=== PATIENT | male | born 1990 | race Caucasian/White ===

== ENCOUNTER 2021-11-28 19:04 | Emergency (ER) | payer MEDICAID ==
[~2021-11-28] VITALS: Ht 165.1 cm; Wt 118.0 kg
[2021-11-28] MEDS ORDERED: SODIUM CHLORIDE 0.9% 1000ML BAG (SEPSIS BOLUS) IV ONE (21:00)
[2021-11-28] MEDS ORDERED: ACETAMINOPHEN 325MG TABLET PO ONE (21:00)
[2021-11-28 22:27] LABS: CHLORIDE 104 mEq/L (98-107)
[2021-11-28 22:29] LABS: BASOPHILS % 0.4 % (0.0-2.0); EOSINOPHILS % 1.3 % (0.0-5.0); HEMATOCRIT. 24.1 % (42.0-52.0); HEMOGLOBIN. 8.1 g/dL (14.0-18.0); MEAN CORPUSCULAR HEMOGLOBIN 29.1 pg (28.0-32.0); MEAN CORPUSCULAR VOLUME 86.1 fL (80.0-94.0); MEAN PLATELET VOLUME 6.7 fl (7.4-10.4); NEUTROPHILS % 68.3 % (40.0-76.0); PLATELET 628 x1000/uL (130-400); RED BLOOD CELL COUNT 2.79 mill/uL (4.7-6.1); RED CELL DISTRIBUTION WIDTH 14.1 % (11.6-14.6)
[2021-11-29] VITALS: BP 145/85
== END 2021-11-29 02:22 | disposition home or self-care (01) ==
LOC: ER 19:04
DX: L76.82 Other postprocedural complications of skin and subcutaneous tissue (principal); I10 Essential (primary) hypertension; Z87.828 Personal history of other (healed) physical injury and trauma; Y83.8 Other surgical procedures as the cause of abnormal reaction of the patient, or of later complication, without mention of misadventure at the time of the procedure; Y92.018 Other place in single-family (private) house as the place of occurrence of the external cause
CPT/HCPCS: 36415; 71045; 80053; 83605; 84145; 84484; 85025; 87040; 93005; 96374; 99285; J7030

== ENCOUNTER 2022-05-09 16:52 | Emergency (ER) | payer MEDICAID ==
[~2022-05-09] VITALS: Ht 167.6 cm; Wt 81.0 kg
[2022-05-09 17:16] VITALS: BP 184/121
[2022-05-09] MEDS ORDERED: NAPROXEN 375MG TABLET PO ONE (18:45)
[2022-05-09] MEDS ORDERED: NAPROXEN 500MG TABLET PO NR (19:15)
[2022-05-09] MEDS ORDERED: NAP5EC MT (19:50)
== END 2022-05-09 20:15 | disposition home or self-care (01) ==
LOC: ER 16:52
DX: S49.82XA Other specified injuries of left shoulder and upper arm, initial encounter (principal); I10 Essential (primary) hypertension; Z87.81 Personal history of (healed) traumatic fracture; Z98.890 Other specified postprocedural states; V00.131A Fall from skateboard, initial encounter; Y93.89 Activity, other specified; Y92.89 Other specified places as the place of occurrence of the external cause
CPT/HCPCS: 73030; 73060; 73080; 99284

== ENCOUNTER 2022-05-24 09:11 | Emergency (ER) | payer MEDICAID ==
[~2022-05-24] VITALS: Ht 167.6 cm; Wt 113.0 kg
[~2022-05-24 09:11] MED LIST: NAP5EC MT
[2022-05-24 09:55] VITALS: BP 171/92
[2022-05-24] MEDS ORDERED: ACETAMINOPHEN 325MG TABLET PO STA (10:15)
[2022-05-24 11:06] LABS: BASOPHILS % 0.4 % (0.0-2.0); EOSINOPHILS % 0.8 % (0.0-5.0); HEMATOCRIT. 43.6 % (42.0-52.0); HEMOGLOBIN. 14.9 g/dL (14.0-18.0); LYMPHOCYTES % 25.8 % (20.0-50.0); MEAN CORPUSCULAR HEMOGLOBIN 27.6 pg (28.0-32.0); MEAN CORPUSCULAR VOLUME 80.9 fL (80.0-94.0); MEAN PLATELET VOLUME 7.5 fl (7.4-10.4); MONOCYTES % 8.9 % (2.0-8.0); NEUTROPHILS % 64.1 % (40.0-76.0); PLATELET 337 x1000/uL (130-400); RED BLOOD CELL COUNT 5.39 mill/uL (4.7-6.1); RED CELL DISTRIBUTION WIDTH 15.4 % (11.6-14.6)
[2022-05-24 11:15] LABS: CHLORIDE 106 mEq/L (98-107)
[2022-05-24] MEDS ORDERED: AMLO5TAB88 PO (11:35)
[2022-05-24] MEDS ORDERED: NAPR-681 PO (11:35)
[2022-05-24] MEDS ORDERED: POTA-10 PO (11:36)
== END 2022-05-24 12:06 | disposition home or self-care (01) ==
LOC: ER 09:11
DX: I10 Essential (primary) hypertension (principal); E87.6 Hypokalemia; Z91.14 Patient's other noncompliance with medication regimen; Z98.890 Other specified postprocedural states
CPT/HCPCS: 36415; 80048; 85025; 99283

== ENCOUNTER 2022-06-03 20:29 | Emergency (ER) | payer MEDICAID ==
[~2022-06-03] VITALS: Ht 168.9 cm; Wt 113.8 kg
[~2022-06-03 20:29] MED LIST changes: +AMLO5TAB88 PO; +NAPR-681 PO; +POTA-10 PO
[2022-06-03 20:45] VITALS: BP 190/100
[2022-06-04] MEDS ORDERED: IBUPROFEN 400MG TABLET PO ONE (01:00)
[2022-06-04] MEDS ORDERED: FLUORESCEIN SODIUM 1MG/STRIP RIGHTEYE ONE (01:00)
[2022-06-04] MEDS ORDERED: TETRACAINE 0.5% OPHTH DROPS 4ML RIGHTEYE ONE (01:00)
[2022-06-04] MEDS ORDERED: AMLODIPINE 5MG TABLET PO ONE (01:00)
[2022-06-04] MEDS ORDERED: SULF15DR26 RIGHTEYE (01:44)
[2022-06-04] MEDS ORDERED: AMLO5TAB4 MT (01:44)
== END 2022-06-04 02:24 | disposition home or self-care (01) ==
LOC: ER 20:29
DX: H57.11 Ocular pain, right eye (principal); I10 Essential (primary) hypertension
CPT/HCPCS: 99281

== ENCOUNTER 2022-07-13 18:31 | Emergency (ER) | payer MEDICAID ==
[~2022-07-13] VITALS: Ht 172.7 cm; Wt 100.0 kg
[~2022-07-13 18:31] MED LIST changes: +AMLO5TAB4 MT; +SULF15DR26 RIGHTEYE
[2022-07-13] MEDS ORDERED: AMLODIPINE 5MG TABLET PO ONE (20:00)
[2022-07-13] MEDS ORDERED: LABETALOL 5MG/ML SYR 20 MG/4 ML SYRINGE IV ONE (20:00)
[2022-07-13 20:11] LABS: BASOPHILS % 0.5 % (0.0-2.0); EOSINOPHILS % 0.5 % (0.0-5.0); HEMOGLOBIN. 14.4 g/dL (14.0-18.0); LYMPHOCYTES % 21.5 % (20.0-50.0); MEAN CORPUSCULAR HEMOGLOBIN 27.9 pg (28.0-32.0); MEAN CORPUSCULAR VOLUME 81.7 fL (80.0-94.0); MEAN PLATELET VOLUME 7.6 fl (7.4-10.4); MONOCYTES % 13.1 % (2.0-8.0); NEUTROPHILS % 64.4 % (40.0-76.0); PLATELET 308 x1000/uL (130-400); RED BLOOD CELL COUNT 5.15 mill/uL (4.7-6.1); RED CELL DISTRIBUTION WIDTH 13.6 % (11.6-14.6)
[2022-07-13 20:16] LABS: CHLORIDE 103 mEq/L (98-107)
[2022-07-13] MEDS ORDERED: POTASSIUM CHLORIDE 20MEQ TABLET SR PO NR (22:30)
[2022-07-13] MEDS ORDERED: ACETAMINOPHEN 325MG TABLET PO NR (23:00)
[2022-07-13] MEDS ORDERED: LABETALOL 5MG/ML SYR 20 MG/4 ML SYRINGE IV NR (23:00)
[2022-07-14 00:03] VITALS: BP 142/64
== END 2022-07-14 00:39 | disposition home or self-care (01) ==
LOC: ER 18:31
DX: R42 Dizziness and giddiness (principal); R00.2 Palpitations; I10 Essential (primary) hypertension
CPT/HCPCS: 36415; 70450; 71045; 80053; 83880; 84484; 85025; 93005; 96374; 96375; 99285; J3490

== ENCOUNTER 2024-01-09 13:12 | Emergency (ER) | payer MEDICAID, OTHER ==
[~2024-01-09] VITALS: Ht 165.1 cm; Wt 89.0 kg
[~2024-01-09 13:12] MED LIST changes: -POTA-10 PO; +POTA-203 PO
[2024-01-09 13:25] VITALS: O2SAT 99
[2024-01-09] MEDS: LISINOPRIL 20MG TABLET PO ONE (14:00)
[2024-01-09 14:01] VITALS: BP 168/123; PULSE 88; RESP 19; TEMP 98.2
[2024-01-09] MEDS ORDERED: LISI20TA31 MT (14:24)
== END 2024-01-09 15:56 ==
LOC: ER 15:03
DX: I10 Essential (primary) hypertension (principal); Z98.890 Other specified postprocedural states
CPT/HCPCS: 99283